=== PATIENT | male | born 1995 | race Caucasian/White ===

== ENCOUNTER 2016-05-22 14:53 | Emergency (ER) | payer OTHER ==
[~2016-05-22] VITALS: Ht 188 cm; Wt 83.9 kg
[~2016-05-22 14:53] MED LIST: FLEXERIL PO; FLONASE 0.05%50 MCG NASAL; FLOVENT INH; IBUPROFEN 600600 M1 PO; IBUPROFEN 800800 M1 PO; KEFLEX250 MG PO; MEDROL DOSPAK21 TA1 PO; MEDROL DOSPAK21 TAB PO; MEDROLDOSEPACK PO; NAPROSYN500 MG PO; NOHOMEMEDICATIONS; NORCO 5-325 TA1 EACH PO; PREDNISONE OR; TESSALON PERLE100 M1 PO; VENTOLIN HFA 1818 GM INH; VENTOLIN HFA INH8 GM INH; ZPAK PO
[2016-05-22] MEDS ORDERED: MEDROLDOSEPACK PO (15:20)
[2016-05-22] MEDS ORDERED: NASONEX17 GM NASAL (15:20)
[2016-05-22] MEDS ORDERED: ZYRTEC10 M2 PO (15:20)
== END 2016-05-22 15:53 | disposition home or self-care (01) ==
LOC: ER 14:53
DX: J30.9 Allergic rhinitis, unspecified (principal); R21 Rash and other nonspecific skin eruption; J45.909 Unspecified asthma, uncomplicated; Z90.89 Acquired absence of other organs; Z88.0 Allergy status to penicillin

== ENCOUNTER 2016-07-29 02:13 | Emergency (ER) | payer OTHER ==
[~2016-07-29] VITALS: Ht 188 cm; Wt 83.9 kg
[~2016-07-29 02:13] MED LIST changes: +NASONEX17 GM NASAL; +ZYRTEC10 M2 PO
[2016-07-29 02:17] VITALS: BP 131/84
== END 2016-07-29 02:43 | disposition home or self-care (01) ==
LOC: ER 02:13
DX: K08.89 Other specified disorders of teeth and supporting structures (principal); J45.909 Unspecified asthma, uncomplicated; Z98.890 Other specified postprocedural states; Z88.0 Allergy status to penicillin

== ENCOUNTER 2018-06-06 23:39 | Emergency (ER) | payer BC, OTHER ==
[~2018-06-06] VITALS: Ht 188 cm; Wt 90.7 kg
[2018-06-07] MEDS ORDERED: ZOFRAN ODT4 MG PO (00:38)
[2018-06-07] MEDS ORDERED: GUAIFEN-CODEINE10 ML PO (00:38)
[2018-06-07 00:49] VITALS: BP 149/86
== END 2018-06-07 00:55 | disposition home or self-care (01) ==
LOC: ER 23:39
DX: J06.9 Acute upper respiratory infection, unspecified (principal); R11.2 Nausea with vomiting, unspecified; J45.909 Unspecified asthma, uncomplicated; Z88.0 Allergy status to penicillin

== ENCOUNTER 2019-12-17 01:22 | Emergency (ER) | payer OTHER ==
[~2019-12-17] VITALS: Ht 188 cm; Wt 95.3 kg
[~2019-12-17 01:22] MED LIST changes: +GUAIFEN-CODEINE10 ML PO; +ZOFRAN ODT4 MG PO
[2019-12-17 03:09] VITALS: BP 147/103
== END 2019-12-17 03:10 | disposition home or self-care (01) ==
LOC: ER 01:22
DX: K08.89 Other specified disorders of teeth and supporting structures (principal); R51.9 Headache, unspecified; J45.909 Unspecified asthma, uncomplicated; Z90.89 Acquired absence of other organs; Z79.899 Other long term (current) drug therapy; Z88.0 Allergy status to penicillin